=== PATIENT | female | born 1975 | race Caucasian/White ===

== ENCOUNTER → 2016-10-11 | Outpatient (CLI) | payer OTHER ==
--- NOTE | 2016-10-12 08:15 | MM ---
Reason for exam: screening (asymptomatic). Last mammogram was performed 1 year and 1 month ago. History: Patient has history of other cancer at age 37. Benign US RT VAD breast biopsy of the right breast, July 21, 2012. Benign right US cyst aspiration of the right breast, April 21, 2007. Physical Findings: A clinical breast exam by your physician is recommended on an annual basis and results should be correlated with mammographic findings. MG Screening Mammo w CAD Bilateral CC and MLO view(s) were taken. Prior study comparison: September 10, 2015, bilateral MG screening mammo w CAD. August 15, 2014, bilateral MG screening mammo w CAD. August 06, 2013, CAD bilateral diagnostic mammogram. The breast tissue is extremely dense which could obscure a lesion on mammography. Previous mammotome biopsy in the right breast x 2. Developing asymmetry x 2. ASSESSMENT: Incomplete: need additional imaging evaluation, BI-RAD 0 RECOMMENDATION: Ultrasound of the right breast. [facility] will attempt to contact patient to return for ultrasound.
== END | disposition home or self-care (01) ==
LOC: RADMAMWWP 07:52
PROVIDERS: ATTEND Obstetrics & Gynecology
DX: Z12.31 Encounter for screening mammogram for malignant neoplasm of breast (principal)

== ENCOUNTER → 2016-10-20 | Outpatient (CLI) | payer OTHER ==
--- NOTE | 2016-10-20 11:44 | USB ---
Reason for exam: additional evaluation requested from abnormal screening. History: Patient has history of other cancer at age 37. Benign US RT VAD breast biopsy of the right breast, July 21, 2012. Benign right US cyst aspiration of the right breast, April 21, 2007. Physical Findings: Nurse Summary: right breast prominent nodularity 9 o'clock/12 o'clock, all soft, nodular, movable, bilateral nodular tissue (nurse ts). US Breast Workup RT Right breast ultrasound including all four quadrants, the retroareolar region and axilla demonstrates a 0.7 x 0.4 x 0.2cm oval, cystic lesion at 12 o'clock, a 1.1 x 1.0 x 0.7cm oval, cystic lesion with septation at 9 o'clock and a 0.9 x 1.0 x 0.3cm oval, cystic lesion at 10 o'clock. Overall fibrocystic change. These results were verbally communicated with the patient and result sheet given to the patient on 10/20/16. ASSESSMENT: Benign, BI-RAD 2 RECOMMENDATION: Return to routine screening mammogram schedule for both breasts.
== END | disposition home or self-care (01) ==
LOC: RADUSWWP 08:37
PROVIDERS: ATTEND Obstetrics & Gynecology
DX: R92.2 Inconclusive mammogram (principal)

== ENCOUNTER → 2017-11-11 | Outpatient (CLI) | payer OTHER ==
--- NOTE | 2017-11-14 14:34 | MM ---
Reason for exam: screening (asymptomatic). Last mammogram was performed 1 year and 1 month ago. History: Patient has history of other cancer at age 37. Benign US RT VAD breast biopsy of the right breast, July 21, 2012. Benign right US cyst aspiration of the right breast, April 21, 2007. Physical Findings: A clinical breast exam by your physician is recommended on an annual basis and results should be correlated with mammographic findings. MG Screening Mammo w CAD Bilateral CC and MLO view(s) were taken. XCCL view(s) were taken of the right breast. Prior study comparison: October 11, 2016, bilateral MG screening mammo w CAD. September 10, 2015, bilateral MG screening mammo w CAD. The breast tissue is extremely dense which could obscure a lesion on mammography. No suspicious abnormality. Post biopsy change on the right breast. ASSESSMENT: Benign, BI-RAD 2 RECOMMENDATION: Routine screening mammogram of both breasts in 1 year.
== END | disposition home or self-care (01) ==
LOC: RADMAMWWP 10:04
PROVIDERS: ATTEND Obstetrics & Gynecology
DX: Z12.31 Encounter for screening mammogram for malignant neoplasm of breast (principal)
CPT/HCPCS: 77067

== ENCOUNTER → 2018-11-28 | Outpatient (CLI) | payer OTHER ==
--- NOTE | 2018-11-30 11:28 | MM ---
Reason for exam: screening (asymptomatic). Last mammogram was performed 1 year and 1 month ago. History: Patient has history of other cancer at age 37. Benign US RT VAD breast biopsy of the right breast, July 21, 2012. Benign right US cyst aspiration of the right breast, April 21, 2007. Physical Findings: A clinical breast exam by your physician is recommended on an annual basis and results should be correlated with mammographic findings. MG Screening Mammo w CAD Bilateral CC and MLO view(s) were taken. Prior study comparison: November 11, 2017, bilateral MG screening mammo w CAD. October 11, 2016, bilateral MG screening mammo w CAD. The breast tissue is extremely dense which could obscure a lesion on mammography. Previous mammotome biopsy in the right breast x 2. No significant changes when compared with prior studies. ASSESSMENT: Benign, BI-RAD 2 RECOMMENDATION: Routine screening mammogram of both breasts in 1 year.
== END | disposition home or self-care (01) ==
LOC: RADMAMWWP 13:54
PROVIDERS: ATTEND Obstetrics & Gynecology
DX: Z12.31 Encounter for screening mammogram for malignant neoplasm of breast (principal)
CPT/HCPCS: 77067

== ENCOUNTER → 2021-02-09 | Outpatient (CLI) | payer OTHER ==
--- NOTE | 2021-02-11 14:09 | MM ---
Reason for exam: screening (asymptomatic). Last mammogram was performed 2 years and 2 months ago. History: Patient has history of other cancer at age 37. Benign US RT VAD breast biopsy of the right breast, July 21, 2012. Benign right US cyst aspiration of the right breast, April 21, 2007. Took hormonal contraceptives for 10 years. Took other hormone for 6 months. Physical Findings: A clinical breast exam by your physician is recommended on an annual basis and results should be correlated with mammographic findings. MG Screening Mammo w CAD Bilateral CC and MLO view(s) were taken. Prior study comparison: November 28, 2018, bilateral MG screening mammo w CAD. November 11, 2017, bilateral MG screening mammo w CAD. The breast tissue is heterogeneously dense. This may lower the sensitivity of mammography. There is an enlarging mass in the upper right breast MLO view only far posterior. Previous mammotome biopsy in the right breast x 2. ASSESSMENT: Incomplete: need additional imaging evaluation, BI-RAD 0 RECOMMENDATION: Ultrasound of the upper right breast is recommended for the far posterior upper right breast mass. [facility] will attempt to contact patient to return for ultrasound. INDIRA
== END | disposition home or self-care (01) ==
LOC: RADMAMWWP 10:52
PROVIDERS: ATTEND Obstetrics & Gynecology
DX: Z12.31 Encounter for screening mammogram for malignant neoplasm of breast (principal)
CPT/HCPCS: 77067

== ENCOUNTER → 2021-03-03 | Outpatient (CLI) | payer OTHER ==
--- NOTE | 2021-03-04 09:31 | USB ---
Reason for exam: additional evaluation requested from abnormal screening. History: Patient has history of other cancer at age 37. Benign US RT VAD breast biopsy of the right breast, July 21, 2012. Benign right US cyst aspiration of the right breast, April 21, 2007. Took hormonal contraceptives for 10 years. Took other hormone for 6 months. Physical Findings: Nurse did not find any significant physical abnormalities on exam. US Breast Workup Limited RT Technologist: Tsering Wong Right limited breast ultrasound including focal area of concern, retroareolar and axilla demonstrates a 0.4 x 0.4 x 0.3cm benign appearing, cystic lesion at 9 o'clock, a 2.7 x 2.0 x 0.8cm cystic lesion at 11 o'clock most likely corresponds to mammogram, probably benign, a 0.7 x 0.5 x 0.3cm benign appearing cystic lesion at 12 o'clock and a 1.1 x 0.9 x 0.3cm benign appearing cystic lesion at 1 o'clock. These results were verbally communicated with the patient and result sheet given to the patient on 03/03/21. ASSESSMENT: Probably benign, BI-RAD 3 RECOMMENDATION: Ultrasound of the right breast in 6 months.
== END | disposition home or self-care (01) ==
LOC: RADUSWWP 07:28
PROVIDERS: ATTEND Obstetrics & Gynecology
DX: N60.01 Solitary cyst of right breast (principal); Z85.9 Personal history of malignant neoplasm, unspecified; Z79.3 Long term (current) use of hormonal contraceptives

== ENCOUNTER → 2022-02-24 | Outpatient (CLI) | payer OTHER ==
--- NOTE | 2022-02-24 08:49 | USB ---
Reason for Exam: Follow-up at short interval from prior study. Additional evaluation requested from abnormal screening. Last screening mammogram was performed 12 month(s) ago. Patient History: Menarche at age 8. First Full-Term at age 20. Other cancer, age 37. Patient used Hormonal Contraceptives for 10 years. 07/21/2012, Benign Core Biopsy on the right side. 04/21/2007, Benign Cyst Aspiration on the right side. Risk Values: Carla 5 year model risk: 1.2%. NCI Lifetime model risk: 10.7%. Prior Study Comparison: 11/11/2017 Bilateral Screening Mammogram, [facility]. 11/28/2018 Bilateral Screening Mammogram, [facility]. 02/09/2021 Bilateral Screening Mammogram, [facility]. Tissue Density: The breast tissue is extremely dense which could obscure a lesion on mammography. Findings: Analyzed By CAD. Mammogram There is a new 0.8 cm rounded density with partially obscured margins 1.6 cm from the nipple in the outer right breast. Stable appearing rounded densities in the right axillary tail. Surgical clips are present. Faint grouped calcifications within the lower inner aspect posterior right breast. Left breast appears stable.. Technique: Method: Whole Breast Handheld. Findings: There is a benign 1.7 x 2.2 x 0.7 cm cyst at the 10:00 position right breast. There is a hypoechoic somewhat irregular 0.6 x 0.7 x 0.4 cm area at the 9:00 position right breast. This is suspicious and biopsy is recommended. There is a 0.8 x 1.1 by 0.2 cm hypoechoic area with good through transmission 2:00 position right breast. This appears to be present previously. Overall Assessment: Suspicious, BI-RAD 4 Assessment: MG diagnostic mammo w CAD REZA - Bilateral: Incomplete: need additional imaging evaluation, BI-RAD 0 - Right. US breast RT - Right: Suspicious, BI-RAD 4. Management: Stereotactic Core Biopsy of the right breast. Ultrasound Core Biopsy of the right breast. A clinical breast exam by your physician is recommended on an annual basis and results should be correlated with mammographic findings. Results were given to the patient verbally at the time of exam. Electronically signed and approved by: Merrick Pugh D.O. Radiologis
== END | disposition home or self-care (01) ==
LOC: RADMAMWWP 06:46
PROVIDERS: ATTEND Obstetrics & Gynecology
DX: R92.1 Mammographic calcification found on diagnostic imaging of breast (principal)
CPT/HCPCS: 77066

== ENCOUNTER → 2022-03-05 | Day surgery (SDC) | payer OTHER ==
[2022-03-05 07:21] VITALS: RESP 16
[2022-03-05 08:21] VITALS: BP 123/78; PULSE 74; TEMP 98.1
--- NOTE | 2022-03-11 10:08 | MM ---
Risk Values: Carla 5 year model risk: 1.2%. NCI Lifetime model risk: 10.7%. Pathology Description: Marker Left Behind. Specimen Radiograph. Approach: CC FB Needle Type: Eviva Cores: 7 Skin Nicks: 1 Gauge: 9 The procedure of stereotactic guided core biopsy was explained to the patient. Benefits, alternatives, and risks were discussed. An informed consent was then obtained. The shortness pathway for biopsy was chosen. Shortness pathway was inferior approach. I performed the localization, then performed the remainder of the procedure. Overlying skin is cleansed with Betadine. Lidocaine is used as anesthetic. A vacuum assisted biopsy gun was used to obtain multiple core samples. The patient tolerated the procedure well without any immediate complication. The patient was kept in the radiology department for short stay after the procedure and then discharged home in stable condition. Targeted calcifications are identified in specimen mammogram. Patient then taken to ultrasound for sampling. The procedure of ultrasound guided core biopsy was explained to the patient. Benefits, alternatives, and risks were discussed. An informed consent was then obtained. The patient was placed in supine positioning for imaging and for the procedure. Preprocedure ultrasound redemonstrates vague small 7 mm oval hypoechoic to anechoic lesion at o'clock position right breast. Nonsterile technique had to be performed due to staff shortage. Lidocaine is used as anesthetic into the skin and subcutaneous tissue up to area of concern in the right breast. Under ultrasound guidance, a vacuum assisted biopsy gun device was used to obtain 2 core samples. Following this, a biopsy clip was left in lesion. The patient tolerated the procedure well without any immediate complication. The patient was kept in the radiology department for short stay after the procedures and then discharged home in stable condition. Post biopsy mammogram shows the stereotactic guided clip to appear roughly roughly satisfactory in position relative to the targeted area of concern on the preprocedure images. Impression: Successful, uncomplicated stereotactic and ultrasound guided core biopsy of area of concern in the right breast, full pathology results to follow. Low index of suspicion noted at time of procedure for ultrasound-guided biopsy. Low to intermediate index of suspicion noted at time of procedure for stereotactic guided biopsy. IMPRESSION: SUCCESSFUL, UNCOMPLICATED STEREOTACTIC GUIDED CORE BIOPSY OF AREA OF CONCERN IN THE BREAST, FULL PATHOLOGY RESULTS TO FOLLOW. ASSESSMENT: RECOMMENDATION: 1. . COMMENTS: A clinical breast exam by your physician is recommended on an annual basis and results should be correlated with mammographic findings. This exam should not preclude additional follow-up of suspicious palpable abnormalities. Results were given to the patient verbally at the time of exam. Pathology Results: Result: High risk. A. RIGHT BREAST, SITE A, STEREOTACTIC NEEDLE CORE BIOPSY: Flat epithelial atypia (FEA)/ADH with calcifications and background fibrocystic changes. B. RIGHT BREAST, 9:00, CORE BIOPSY: Scanty papillary epithelial fragments with apocrine metaplasia and adjacent benign fibroadipose tissue. Severely limited sample, see note. Tissue Density: Right: The breast tissue is heterogeneously dense. This may lower the sensitivity of mammography. Pathology Description: Location: 9 o'clock. Needle Type: Celero Cores: 3 The procedure of stereotactic guided core biopsy was explained to the patient. Benefits, alternatives, and risks were discussed. An informed consent was then obtained. The shortness pathway for biopsy was chosen. Shortness pathway was inferior approach. I performed the localization, then performed the remainder of the procedure. Overlying skin is cleansed with Betadine. Lidocaine is used as anesthetic. A vacuum assisted biopsy gun was used to obtain multiple core samples. The patient tolerated the procedure well without any immediate complication. The patient was kept in the radiology department for short stay after the procedure and then discharged home in stable condition. Targeted calcifications are identified in specimen mammogram. Patient then taken to ultrasound for sampling. The procedure of ultrasound guided core biopsy was explained to the patient. Benefits, alternatives, and risks were discussed. An informed consent was then obtained. The patient was placed in supine positioning for imaging and for the procedure. Preprocedure ultrasound redemonstrates vague small 7 mm oval hypoechoic to anechoic lesion at o'clock position right breast. Nonsterile technique had to be performed due to staff shortage. Lidocaine is used as anesthetic into the skin and subcutaneous tissue up to area of concern in the right breast. Under ultrasound guidance, a vacuum assisted biopsy gun device was used to obtain 2 core samples. Following this, a biopsy clip was left in lesion. The patient tolerated the procedure well without any immediate complication. The patient was kept in the radiology department for short stay after the procedures and then discharged home in stable condition. Post biopsy mammogram shows the stereotactic guided clip to appear roughly roughly satisfactory in position relative to the targeted area of concern on the preprocedure images. Impression: Successful, uncomplicated stereotactic and ultrasound guided core biopsy of area of concern in the right breast, full pathology results to follow. Low index of suspicion noted at time of procedure for ultrasound-guided biopsy. Low to intermediate index of suspicion noted at time of procedure for stereotactic guided biopsy. IMPRESSION: SUCCESSFUL, UNCOMPLICATED STEREOTACTIC GUIDED CORE BIOPSY OF AREA OF CONCERN IN THE BREAST, FULL PATHOLOGY RESULTS TO FOLLOW. ASSESSMENT: RECOMMENDATION: 1. . COMMENTS: A clinical breast exam by your physician is recommended on an annual basis and results should be correlated with mammographic findings. This exam should not preclude additional follow-up of suspicious palpable abnormalities. Results were given to the patient verbally at the time of exam. Pathology Results: Result: High risk, Papilloma-high risk. A. RIGHT BREAST, SITE A, STEREOTACTIC NEEDLE CORE BIOPSY: Flat epithelial atypia (FEA)/ADH with calcifications and background fibrocystic changes. B. RIGHT BREAST, 9:00, CORE BIOPSY: Scanty papillary epithelial fragments with apocrine metaplasia and adjacent benign fibroadipose tissue. Severely limited sample, see note. Overall Assessment: High risk Assessment: MG diagnostic mammo RT wo CAD - Right: Suspicious, BI-RAD 4. Management: Surgical Consultation of the right breast. Electronically signed and approved by: Truong Webster M.D.
== END ==
LOC: RADMAMWWP 07:01
PROVIDERS: ATTEND Surgery
DX: N60.11 Diffuse cystic mastopathy of right breast (principal); N60.81 Other benign mammary dysplasias of right breast; R92.0 Mammographic microcalcification found on diagnostic imaging of breast
CPT/HCPCS: 88305; 77065; 19081; 19083; A4648 ×2; J2001

== ENCOUNTER 2022-04-02 07:36 | Day surgery (SDC) | payer OTHER ==
[2022-03-31 14:54] VITALS: BMI 21.9
[~2022-04-02 07:36] MED LIST: ACETAMINOPHEN TAB 500 MG TAB PO PRN; DEXAMETHASONE SOD PHOSPHATE 4 MG/ML 1 ML VIAL IV ONE; HEPARIN SODIUM,PORCINE/PF 5,000 UNIT/0.5 ML SYRINGE SQ PRN; HYDROmorphone 0.5 MG/0.5 ML SYRINGE IVP PRN; LACTATED RINGERS 1,000 ML IV SCH; MIDAZOLAM 2 MG/2 ML VIAL IV PRN; ONDANSETRON 4 MG/2 ML VIAL IVP ONE; Pre Op ABX Message 1 EACH MISC MISCELLANE ONE; SCOPOLAMINE 1 MG/72 HR PATCH TRANSDERM ONE
[2022-04-02] MEDS ORDERED: LIDOCAINE 1% (10MG/ML) FOR IV START INTRADERMA ONE (08:10)
[2022-04-02 08:14] LABS: Glucose,Whole Blood 93 mg/dL (70-110)
[2022-04-02] MEDS ORDERED: ALPRAZolam 0.25 MG TAB ONE (08:22)
[2022-04-02] MEDS ORDERED: LIDOCAINE 1% INJ 10MG/ML (20 ML MDV) SQ ONE (09:07)
[2022-04-02] MEDS ORDERED: PROPOFOL 10 MG/ML 20 ML VIAL IV ONE (11:11)
[2022-04-02] MEDS ORDERED: fentaNYL (PF) 50 MCG/ML 2 ML AMP ONE (11:11)
[2022-04-02] MEDS ORDERED: MIDAZOLAM 2 MG/2 ML VIAL ONE (11:11)
[2022-04-02] MEDS ORDERED: LIDOCAINE 2% INJ 20 MG/ML (2 ML VIAL) ONE (11:11)
[2022-04-02] MEDS ORDERED: LACTATED RINGERS 1,000 ML IV ONE (11:11)
[2022-04-02] MEDS ORDERED: BUPIVACAINE (PF) 0.25% 30 ML VIAL SQ ONE ×2 (11:36)
[2022-04-02] MEDS ORDERED: HYDROcodone/APAP 5-325MG 1 EACH TAB PO PRN (12:14)
[2022-04-02] MEDS ORDERED: NALOXONE 0.4 MG/ML 1 ML VIAL IV PRN (12:14)
--- NOTE | 2022-04-02 12:19 | P.OP ---
Date of Procedure: 04/02/22 Procedure(s) Performed: PREOPERATIVE DIAGNOSIS: Abnormal right mammogram POSTOPERATIVE DIAGNOSIS: Same PROCEDURE: Right Breast wire localization biopsy SURGEON: James EBL: Minimal ANESTHESIA: General plus local COMPLICATIONS: None OPERATIVE PROCEDURE: Patient was placed on the operating room table in the brenner pine position. The patient's breast was prepped and draped in usual sterile fashion. A curvilinear incision was made adjacent to the areola at the medial aspect. The subcutaneous tissues were dissected until the wire was identified and brought through the incision. The wire was entering the breast at 4 o'clock position directed medially. I followed the wire down into the breast tissue. The breast tissue around the tip of the wire was fully excised using electrocautery. The specimen was sent for specimen radiogram. The clip was present within the specimen. The subcutaneous tissues were inspected. No bleeding was seen. The subcutaneous tissues were closed using 3-0 Vicryl sutures. The skin was closed using a running 4-0 Monocryl stitch. Skin glue and sterile dressings were applied. DISPOSITION: Stable to recovery room
[2022-04-02 12:22] VITALS: TEMP 96.8
[2022-04-02 13:34] VITALS: BP 124/76; PULSE 63; RESP 18
--- NOTE | 2022-04-08 11:36 | MM ---
Risk Values: Carla 5 year model risk: 1.7%. NCI Lifetime model risk: 13.6%. Prior Study Comparison: 02/09/2021 Bilateral Screening Mammogram, [facility]. 02/24/2022 Bilateral MG diagnostic mammo w CAD RZEA, [facility]. 03/05/2022 Right MG diagnostic mammo RT wo CAD, [facility]. Pathology Description: Approach: Medial to Lateral Needle Type: 5 cm Kopan The procedure of needle localization with wire placement and than surgical excision was explained to the patient. Benefits, alternatives, and risks were discussed. An informed consent was then obtained. Case reviewed with surgeon prior to procedure. Agreeable with six-month follow-up ultrasound on the ultrasound biopsy site over needle localization. Single site for needle localization due to atypia was agreed. The shortest pathway for procedure was chosen. Shortest pathway was medial to lateral approach. The overlying skin was prepped and draped in usual sterile fashion. Lidocaine is used as anesthetic into the skin and subcutaneous tissue up to the level of area of concern. A 5 cm needle was used. It was placed via a medial approach under mammographic guidance. Subsequent 90 degrees mammogram show the needle to be in satisfactory position relative to the targeted area. At this point, wire was placed and the needle was withdrawn. The wire was fixed to patient's skin. Images were marked for surgeon. The patient tolerated the procedure well without any immediate complication. The patient was kept in the radiology department for short stay after the procedure and then taken to surgery for surgical excision. Targeted biopsy clip and wire are identified in specimen mammogram. The patient was kept in hospital for short stay after the procedure and then discharged home in stable condition. Impression: Successful, uncomplicated needle localization with wire placement and surgical excision of targeted biopsy clip in the right breast, full pathology results to follow. Pathology Results: Result: Benign, Fibrocystic change. RIGHT BREAST, NEEDLE LOCALIZATION EXCISION: Flat epithelial atypia (FEA/ADH) with calcifications, fibrocystic changes and previous biopsy site. Margins negative for atypia. Overall Assessment: Benign Management: Diagnostic Mammogram of the right breast in 6 months. Electronically signed and approved by: Truong Webster M.D.
== END 2022-04-02 13:25 | disposition home or self-care (01) ==
LOC: OR 07:36
PROVIDERS: ATTEND Surgery
DX: N60.11 Diffuse cystic mastopathy of right breast (principal); R92.0 Mammographic microcalcification found on diagnostic imaging of breast; N60.81 Other benign mammary dysplasias of right breast; F17.200 Nicotine dependence, unspecified, uncomplicated; Z91.040 Latex allergy status; Z79.890 Hormone replacement therapy; Z85.820 Personal history of malignant melanoma of skin; Z98.51 Tubal ligation status; Z80.1 Family history of malignant neoplasm of trachea, bronchus and lung; Z80.8 Family history of malignant neoplasm of other organs or systems; Z82.3 Family history of stroke
CPT/HCPCS: 81025; 88307; 76098; 19281; 19125; C1819; J2250; J1100; J0690; J2405; J2001 ×2; J3010; J2704; J1644

== ENCOUNTER → 2023-02-25 | Outpatient (CLI) | payer OTHER ==
--- NOTE | 2023-02-25 11:30 | MM ---
Reason for Exam: Additional evaluation requested from prior study. Last screening mammogram was performed 12 month(s) ago. Patient History: Menarche at age 8. First Full-Term at age 20. Perimenopausal. Other cancer, age 37. Patient used Hormonal Contraceptives for 10 years. 04/02/2022, Benign MG pre op needle loc RT on the right side. 03/05/2022, High risk MG stereo VAD BX RT on the right side. 03/05/2022, High risk US biopsy breast VAD RT on the right side. 07/21/2012, Benign Core Biopsy on the right side. 04/21/2007, Benign Cyst Aspiration on the right side. Risk Values: Carla 5 year model risk: 1.6%. NCI Lifetime model risk: 13.3%. Prior Study Comparison: 11/11/2017 Bilateral Screening Mammogram, [facility]. 11/28/2018 Bilateral Screening Mammogram, [facility]. 02/09/2021 Bilateral Screening Mammogram, [facility]. 02/24/2022 Bilateral MG diagnostic mammo w CAD REZA, [facility]. 03/05/2022 Right MG diagnostic mammo RT wo CAD, [facility]. Tissue Density: The breast tissue is extremely dense which could obscure a lesion on mammography. Findings: Analyzed By CAD. There are 3 biopsy clips in the outer aspect of the right breast now identified. There are a few scattered tiny benign-appearing round calcifications bilaterally redemonstrated. Stable distortion in the left breast. No new mass or worrisome group of microcalcification. Overall Assessment: Benign, BI-RAD 2 Management: Screening Mammogram of both breasts in 1 year. . Results were given to the patient verbally at the time of exam. Patient should continue monthly self-breast exams. A clinical breast exam by your physician is recommended on an annual basis. This exam should not preclude additional follow-up of suspicious palpable abnormalities. Note on Carla scores and lifetime risk: 1. A Carla score greater than 3% is considered moderate risk. If this is the case, consider specialist referral to assess eligibility for a risk reducing agent. 2. If overall lifetime risk for the development of breast cancer is 20% or higher, the patient may qualify for future screening with alternating mammogram and breast MRI. Electronically signed and approved by: Truong Webster M.D.
== END | disposition home or self-care (01) ==
LOC: RADMAMWWP 10:48
PROVIDERS: ATTEND Surgery
DX: R92.1 Mammographic calcification found on diagnostic imaging of breast (principal); R92.8 Other abnormal and inconclusive findings on diagnostic imaging of breast
CPT/HCPCS: 77062; 77066

== ENCOUNTER → 2024-02-27 | Outpatient (CLI) | payer OTHER ==
--- NOTE | 2024-02-29 10:26 | MM ---
Reason for Exam: Screening (asymptomatic). Last mammogram was performed 1 year(s) and 1 month(s) ago. Patient History: Menarche at age 8. First Full-Term at age 20. Perimenopausal. Other cancer, age 37. Patient used Hormonal Contraceptives for 10 years. 04/02/2022, Benign MG pre op needle loc RT on the right side. 03/05/2022, High risk MG stereo VAD BX RT on the right side. 03/05/2022, High risk US biopsy breast VAD RT on the right side. 07/21/2012, Benign Core Biopsy on the right side. 04/21/2007, Benign Cyst Aspiration on the right side. Risk Values: Carla 5 year model risk: 1.4%. NCI Lifetime model risk: 12.9%. Prior Study Comparison: 02/24/2022 Bilateral MG diagnostic mammo w CAD REZA, [facility]. 03/05/2022 Right MG diagnostic mammo RT wo CAD, [facility]. 02/25/2023 Bilateral MG 3D diag mammo w/cad REZA, [facility]. Tissue Density: The breasts are extremely dense, which lowers the sensitivity of mammography. Findings: Analyzed By CAD. There is no suspicious group of microcalcifications or new suspicious mass in either breast. Biopsy clip marker stable. Benign-appearing calcifications. Asymmetric tissue upper outer left breast stable from multiple prior exams. Overall Assessment: Benign, BI-RAD 2 Management: Screening Mammogram of both breasts in 1 year. . Patient should continue monthly self-breast exams. A clinical breast exam by your physician is recommended on an annual basis. This exam should not preclude additional follow-up of suspicious palpable abnormalities. Note on Carla scores and lifetime risk: 1. A Carla score greater than 3% is considered moderate risk. If this is the case, consider specialist referral to assess eligibility for a risk reducing agent. 2. If overall lifetime risk for the development of breast cancer is 20% or higher, the patient may qualify for future screening with alternating mammogram and breast MRI. Electronically signed and approved by: Grzegorz Hagan M.D. Radiologis
== END | disposition home or self-care (01) ==
LOC: RADMAMWWP 09:15
PROVIDERS: ATTEND Obstetrics & Gynecology
DX: Z12.31 Encounter for screening mammogram for malignant neoplasm of breast (principal)
CPT/HCPCS: 77063; 77067

== ENCOUNTER → 2025-03-22 | Outpatient (CLI) | payer OTHER ==
--- NOTE | 2025-04-03 09:04 | MM ---
Reason for Exam: Screening (asymptomatic). Last screening mammogram was performed 12 month(s) ago. Patient History: Menarche at age 8. First Full-Term at age 20. Perimenopausal. Other cancer, age 37. Patient used Hormonal Contraceptives for 10 years. 04/02/2022, Benign MG pre op needle loc RT on the right side. 03/05/2022, High risk MG stereo VAD BX RT on the right side. 03/05/2022, High risk US biopsy breast VAD RT on the right side. 07/21/2012, Benign Core Biopsy on the right side. 04/21/2007, Benign Cyst Aspiration on the right side. Risk Values: Carla 5 year model risk: 1.5%. NCI Lifetime model risk: 12.7%. Prior Study Comparison: 03/05/2022 Right MG diagnostic mammo RT wo CAD, [facility]. 02/25/2023 Bilateral MG 3D diag mammo w/cad REZA, [facility]. 02/27/2024 Bilateral MG 3D screening mammo w/cad, [facility]. Tissue Density: The breasts are extremely dense, which lowers the sensitivity of mammography. Findings: Analyzed By CAD. Right breast surgical clips. Right breast: There is no suspicious group of microcalcifications or new suspicious mass. Benign-appearing calcifications right breast. Left breast: There is no suspicious group of microcalcifications or new suspicious mass. Overall Assessment: Negative, BI-RAD 1 Management: Screening Mammogram of both breasts in [address] [facility] will attempt to contact patient to return for supplemental views and ultrasound if indicated. Patient should continue monthly self-breast exams. A clinical breast exam by your physician is recommended on an annual basis. This exam should not preclude additional follow-up of suspicious palpable abnormalities. Note on Carla scores and lifetime risk: 1. A Carla score greater than 3% is considered moderate risk. If this is the case, consider specialist referral to assess eligibility for a risk reducing agent. 2. If overall lifetime risk for the development of breast cancer is 20% or higher, the patient may qualify for future screening with alternating mammogram and breast MRI. [facility], , 03/22/2025 8:46 AM. Electronically signed and approved by: Nabil Rice DO
== END | disposition home or self-care (01) ==
LOC: RADMAMWWP 08:31
PROVIDERS: ATTEND Obstetrics & Gynecology
DX: Z12.31 Encounter for screening mammogram for malignant neoplasm of breast
CPT/HCPCS: 77063; 77067